=== PATIENT | female | born 1970 | race Caucasian/White ===

== ENCOUNTER 2024-12-29 12:40 | Emergency (ER) | payer BC, SELFPAY ==
[2024-12-29 12:41] VITALS: BMI 34.5
[2024-12-29 12:49] VITALS: BP 134/88; PULSE 65; RESP 18; TEMP 36.5; O2SAT 97
--- NOTE | 2024-12-29 12:59 | XR_ITS ---
Examination: CT abdomen and pelvis without contrast. Coronal 3-D reconstructions. Sagittal 2-D reconstructions. Date and time of exam:December 29, 2024 1311 hours INDICATIONS: Right-sided pelvic pain beginning 4 months ago CTDI: vol (mGy): 10.9 DLP: (mGycm): 618 Technique: Axial images of the abdomen have been obtained, 3 mm slice thickness Intravenous contrast material has not been administered. Low dose protocols were performed. One or more of the following dose reduction techniques were used; automated exposure control, adjustment of the mA and/or KV according to patient size, use of iterative reconstruction technique. Findings: No focal liver or splenic lesion Cholelithiasis No pancreatic mass No renal or ureteral calculi, no hydronephrosis Aorta normal size Normal appendix No bowel obstruction No diverticulitis Uterine calcifications, anteverted uterus atrophic uterus No bladder mass or bladder calculi Moderate osteopenia IMPRESSION: Lithiasis, negative for cholecystitis No renal or ureteral calculi, no hydronephrosis Normal appendix No bowel obstruction diverticulitis or free air
--- NOTE | 2024-12-29 12:59 | XR_ITS ---
Examination: Pelvic ultrasound, transabdominal, complete Technique: Transabdominal ultrasound of the pelvis performed using grayscale imaging Date and time of exam: December 29, 2024 1341 hours INDICATIONS: Intermittent pelvic pain beginning 3 days ago Lines: Uterus 6.8 cm endometrial stripe 0.2 cm No uterine mass Right ovary 2.3 cm arterial flow. Left ovary obscured by bowel gas IMPRESSION: No uterine or adnexal mass demonstrated
--- NOTE | 2024-12-29 13:00 | EDRME_ITS ---
Rapid Medical Screening Exam E Arrival date/time: 12/29/24 12:40 54-year-old female presents to the emergency department for complaints of right- sided abdominal pain ongoing for the last few months Chief Complaint: Abdominal Pain Vital signs: Vital Signs Temperature 97.7 F 12/29/24 12:49 Pulse Rate 65 12/29/24 12:49 Respiratory Rate 18 12/29/24 12:49 Blood Pressure 134/88 H 12/29/24 12:49 Pulse Oximetry (%) 97 12/29/24 12:49 Oxygen Delivery Method Room Air 12/29/24 12:49
[2024-12-29 13:37] LABS: Basophils # (Auto) 0.1 Thou/mm3 (0.0-0.2); Basophils % (Auto) 1 % (0-2.5); Eosinophils # (Auto) 0.6 Thou/mm3 (0.0-0.5); Eosinophils % (Auto) 5 % (0-10); Hematocrit 46.2 % (36.0-46.0); Hemoglobin 15.6 g/dL (12.0-16.0); Immature Granulocytes Auto 0.05 Thou/mm3 (0.00-0.00); Lymphocytes # (Auto) 3.7 Thou/mm3 (1.0-4.8); Lymphocytes % (Auto) 31 % (10-50); Mean Corpuscular HGB Conc 33.8 g/dl (31.0-37.0); Mean Corpuscular Hemoglobin 31.3 pg (25.0-35.0); Mean Corpuscular Volume 93 fL (80-100); Monocytes # (Auto) 1.0 Thou/mm3 (0.0-0.8); Monocytes % (Auto) 8 % (0-12); Neutrophils # (Auto) 6.7 Thou/mm3 (1.8-7.7); Neutrophils % (Auto) 56 % (37-80); Nucleated Red Blood Cell # 0.00 Thou/mm3 (0.00-0.00); Nucleated Red Blood Cell % 0 /100 WBC (0); Platelet Count 242 Thou/mm3 (140-440); RDW Standard Deviation 47.1 fL (36.4-46.3); Red Blood Count 4.99 Miln/mm3 (4.00-5.20); White Blood Count 12.1 Thou/mm3 (3.6-11.0)
[2024-12-29 13:56] LABS: Alanine Aminotransferase 24 U/L (10-49); Albumin, Serum 4.5 gm/dL (3.5-5.0); Albumin/Globulin Ratio 1.5 (1.2-2.2); Alkaline Phosphatase 123 U/L (46-116); Anion Gap 7 (7-16); Aspartate Amino Transferase 19 U/L (0-34); BUN/Creatinine Ratio 18 Ratio (12-20); Bilirubin,Total 0.2 mg/dL (0.3-1.2); Blood Urea Nitrogen 14 mg/dL (9-23); Calcium 9.8 mg/dL (8.3-10.6); Calcium (Corrected) 9.8 mg/dL (8.5-10.1); Carbon Dioxide 27.1 mMol/L (20.0-31.0); Chloride 108 mMol/L (98-107); Creatinine (Component) 0.8 mg/dL (0.6-1.3); Estimated Creatinine Clearance 93.3 mL/min (>60); Globulin 3.1 gm/dL (2.3-3.5); Glucose 93 mg/dL (74-106); Lipase 29 U/L (12-53); Osmolality,Calculated 283 (275-295); Potassium 4.2 mMol/L (3.4-5.1); Sodium 142 mMol/L (136-145); Total Protein 7.6 gm/dL (5.7-8.2); eGFR > 60 See Note
[2024-12-29 13:59] LABS: Collection Type, Urine Clean Catch
[2024-12-29 14:09] LABS: Bilirubin,Urine Negative (Negative); Blood,Urine 1+ (Negative); Clarity,Urine Clear (Clear/Hazy); Color,Urine Lt-Yellow (Lt Yel-Yel); Culture Indicated,Urine Not Indicated; Glucose, Urine Negative (Negative); Ketones,Urine Negative (Negative); Leukocyte Esterase,Urine Negative (Negative); Nitrite,Urine Negative (Negative); PH,Urine 7.0 (5.0-7.0); Protein,Urine Negative (Neg - Trace); RBC,Urine 3 /hpf (0-3); Specific Gravity,Urine 1.017 (1.001-1.035); Squamous Epithelial Cell,Urine 1 /hpf (0-5); Urobilinogen,Urine Negative mg/dL (0.0-1.0); WBC,Urine 1 /hpf (0-5)
--- NOTE | 2024-12-29 17:07 | PD.EDABDPN ---
ED Abdominal Pain RME/HPI General Chief Complaint: Abdominal Pain Stated complaint: R LOWER ABD PAIN X4 MONTHS RADIATING TO R LOW BACK Time seen by provider: 12/29/24 14:01 Arrival date/time: 12/29/24 12:40 RME / HPI RME / HPI narrative: 54-year-old female presents to the emergency department for complaints of right-sided abdominal pain ongoing for the last few months. Described as dull ache, severity moderate. Pain radiates to the right lower back. Denies any fever denies any dysuria denies any other complaints no medications taken prior to arrival. Related Data Previous Rx's ?Medication ?Instructions ?Recorded dicyclomine 20 mg tablet 20 mg PO QID PRN abdominal pain 12/29/24 #30 tabs ibuprofen 800 mg tablet 800 mg PO Q8H PRN pain #30 tabs 12/29/24 Allergies Allergy/AdvReac Type Severity Reaction Status Date / Time No Known Allergies Allergy Verified 12/29/24 12:45 Review of Systems Review of Systems Narrative Review of Systems: Review of system reviewed and within normal limits except mentioned in HPI ED Exam Narrative Physical exam: VITAL SIGNS: Reviewed. GENERAL APPEARANCE: Alert and interactive, follows commands, no acute distress, HEAD AND FACE: Non-traumatic. ENT: PERRL, pink conjunctivitis, eyelid no trauma, Mucous membrane moist. NECK: Supple, nontender, no nuchal rigidity. CHEST: No tenderness, no crepitus, no paradoxical movement, no retractions. LUNGS: Clear, well ventilated, symmetric, no rales, no wheezing, no ronchi, no stridor, good breath sounds bilaterally. HEART: Regular rate, regular rhythm, no murmur, no gallops. ABDOMEN: Soft, positive bowel sounds, nondistended, no guarding, right upper quadrant tenderness, no rebound, no masses, RECTAL: Deferred. GENITAL: Deferred. NEUROLOGICAL: Gross motor function intact sensory function intact, Appropriate for age. MUSCULOSKELETAL: low back nontender, full range of motion. EXTREMITIES: Nontender, full range of motion. SKIN: Color pink, dry, no rash, no lacerations, no abrasions, no contusions. LYMPHATICS: Deferred. Course Quality Measures none Orders Category Date Time Status CT abdomen pelvis wo con Stat Exams 12/29/24 12:59 Completed US pelvic complete Stat Exams 12/29/24 12:59 Completed CBC Stat Lab 12/29/24 13:24 Completed Comprehensive Metabolic Panel Stat Lab 12/29/24 13:24 Completed Lipase Stat Lab 12/29/24 13:24 Completed UA, C/S IF [Urinalysis, C/S if Indicated] Stat Lab 12/29/24 13:36 Completed Vital Signs Vital signs: Vital Signs Temperature 97.7 F 12/29/24 12:49 Pulse Rate 65 12/29/24 12:49 Respiratory Rate 18 12/29/24 12:49 Blood Pressure 134/88 H 12/29/24 12:49 Pulse Oximetry (%) 97 12/29/24 12:49 Oxygen Delivery Method Room Air 12/29/24 12:49 Abdominal Pain MDM MDM Narrative MDM Narrative:: 54-year-old female presents to the emergency department for complaints of right-sided abdominal pain ongoing for the last few months. Described as dull ache, severity moderate. Pain radiates to the right lower back. Denies any fever denies any dysuria denies any other complaints no medications taken prior to arrival. Patient's workup today is unremarkable. Except for slight leukocytosis of 12,000, LFTs are normal total bili is normal. Ultrasound of the pelvis came back unremarkable. CT scan of the abdomen pelvis showed cholelithiasis with no sign of acute cholecystitis. Clinically patient is not showing any sign of acute cholecystitis. Patient was advised to follow-up closely with PCP and for referral to general surgeon. Patient agrees with the plan Patient data External records reviewed:: None Clinical information provided by:: patient Social determinants that could affect healthcare access:: none Patient has the following chronic illnesses:: None How is presenting disease/condition affected by chronic disease/condition?: no chronic disease Evaluation data The following diagnostics were reviewed and interpreted by me:: lab results and radiology exam(s) Lab and/or radiology exams considered but not ordered:: None Interpretation Summary: See results MDM Medications / Prescriptions Medications or Prescriptions considered but not ordered:: None Medication administrations:: None Consultations Consultation(s) initiated? (list below): No Diagnosis Differential diagnosis abdominal pain: abdominal pain, gastroenteritis and pancreatitis Most likely diagnosis given after review of the tests above:: Cholelithiasis Admission Indicated Admission indicated?: not indicated Admission Request Was there a request for admission?: No Disposition Plan Disposition Plan: Discharge Discharge Attestation Discharge Attestation: The patient and all family members were given an opportunity to ask questions and understood the discharge instructions. Discharge instructions specifically effects, indications for sooner follow up or return to the emergency department, and the expected course of current diagnosis. Patient condition: Stable Discharge Plan Plan Patient Disposition: HOME (Self Care) Discharge Disposition comment: Stable Prescriptions/Referrals Prescriptions/Med Rec: New dicyclomine 20 mg tablet 20 mg PO QID PRN (Reason: abdominal pain) Qty: 30 0RF ibuprofen 800 mg tablet 800 mg PO Q8H PRN (Reason: pain) Qty: 30 0RF Referrals: Barbara Mckeon MD [Primary Care Provider] - In 1 week Problem List Clinical Impression: Abdominal pain, Gallstone Patient/Caregiver Discharge Instructions Discharge Activity: activity as tolerated Education Materials: Abdominal Pain, Treating Gallstones Additional Instructions: Thank you for the opportunity for serving you today. You are stable for discharged . You are advised to: Follow-up with your PCP in 1 to 2 days Return to ED for worsening of symptoms Increase oral fluids Take medication as prescribed Please avoid eating fatty, greasy, fried foods. Please avoid drinking milk, please avoid consuming dairy products As your PCP to refer you to general surgeon regarding your gallstone Print Language: Ethiopian Stand Alone Forms: Shelly Award Info., Patient Portal Info Letter PA/CASH APPLICATION REPRESENTATIVE Supervising Physician AZIZA/ELVIS Supervising Physician: MD Bret
== END 2024-12-29 18:11 | disposition home or self-care (01) ==
PROVIDERS: Nurse Practitioner Primary Care; Emergency Provider Family Medicine; PCP Family Medicine
DX: K80.20 Calculus of gallbladder without cholecystitis without obstruction (principal); R10.2 Pelvic and perineal pain
CPT/HCPCS: 36415; 74176; 76856; 80053; 81001; 83690; 85025; 99283

== ENCOUNTER 2025-01-05 11:26 | Day surgery (SDC) | payer BC, SELFPAY ==
[2025-01-05] VITALS (11 sets, daily range): BP systolic 130–176; BP diastolic 71–101; PULSE 53–70; RESP 12–20; TEMP 36.1–37.2; O2SAT 92–97; BMI 18.3
--- NOTE | 2025-01-05 11:54 | PD.EDRME ---
Rapid Medical Screening Exam RME Arrival date/time: 01/05/25 11:26 Chief Complaint: Abdominal Pain Time Seen by Provider: 01/05/25 11:56 Vital signs: Vital Signs Temperature 98.1 F 01/05/25 11:38 Pulse Rate 69 01/05/25 11:38 Respiratory Rate 16 01/05/25 11:38 Blood Pressure 130/88 H 01/05/25 11:38 Pulse Oximetry (%) 97 01/05/25 11:38 Oxygen Delivery Method Room Air 01/05/25 11:38 Pulse ox 97% on room air Vital signs reviewed by provider: Yes RME Narrative: 54-year-old female tells me that she has had right lower quadrant pain that radiates to the right flank that began July of this year. She was seen on December 25 and numerous tests were performed and were inconclusive. Patient is known to have gallbladder stones. She describes the pain to her right lower quadrant as like a ball and upon moving the ball feels tight.
--- NOTE | 2025-01-05 11:56 | EKG_ITS ---
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
--- NOTE | 2025-01-05 12:09 | PD.EDABDPN ---
ED Abdominal Pain RME/HPI General Chief Complaint: Abdominal Pain Stated complaint: Abdominal pain, sweating saw Bindu yesterday Time seen by provider: 01/05/25 11:56 Arrival date/time: 01/05/25 11:26 Limitations: no limitations RME / HPI RME / HPI narrative: 54-year-old female tells me that she has had right lower quadrant pain that radiates to the right flank that began July of this year. She was seen on December 25 and numerous tests were performed and were inconclusive. Patient is known to have gallbladder stones. She describes the pain to her right lower quadrant as like a ball and upon moving the ball feels tight. DR. AGUSTÍN LANDRUM ED EVALUATION: 54-year-old female with no significant past medical history presents to the Emergency Department with complaint of right flank pain radiating to the back and right upper quadrant, ongoing for 10 days. She describes nausea associated with the pain. Last oral intake was around 7 PM yesterday, consisting of watermelon and salad. She smokes and drinks socially (1?2 times per year) and denies any drug use. She was referred by Dr. Ruano for surgical evaluation. Related Data Previous Rx's ?Medication ?Instructions ?Recorded dicyclomine 20 mg tablet 20 mg PO QID PRN abdominal pain 12/29/24 #30 tabs ibuprofen 800 mg tablet 800 mg PO Q8H PRN pain #30 tabs 12/29/24 Allergies Allergy/AdvReac Type Severity Reaction Status Date / Time No Known Allergies Allergy Verified 01/05/25 11:30 Review of Systems Review of Systems Systems Reviewed: All systems reviewed, normal except as documented Past Medical History Past Medical History ENDOCRINE: Negative Diabetes Mellitus Type 2 Social History SMOKING STATUS: Current every day smoker ED Exam General Limitations: Present no limitations General appearance: Present alert and in no apparent distress Head Head exam: Present atraumatic, normocephalic and normal inspection Eye Eye exam: Present normal appearance, PERRL and EOMI ENT ENT exam: Present normal exam, normal oropharynx and mucous membranes moist Neck Neck exam: Present normal inspection, full ROM and trachea midline Chest Chest inspection: Present normal inspection and symmetric chest wall rise Respiratory Respiratory exam: Present normal lung sounds bilaterally Cardiovascular Cardiovascular exam: Present regular rate, normal rhythm and normal heart sounds Abdominal Exam Abdominal exam: Present soft and normal bowel sounds Extremities Exam Extremities exam: Present normal inspection and full ROM Back Exam Back exam: Present normal inspection and full ROM Neurological Exam Neurological exam: Present alert, oriented X3 and CN II-XII intact Psychiatric Psychiatric exam: Present normal affect and normal mood Skin Skin exam: Present warm, dry, intact and normal color Course Quality Measures none Orders Category Date Time Status Patient Condition Routine Admission 01/05/25 12:[address] in Surgical Day Care Routine Admission 01/05/25 12:38 Active Consent [Obtain Written Consent For:] .NOW Care 01/05/25 12:38 Active EKG (ED ONLY) *Do not use* NOW Care 01/05/25 11:57 Completed Intake and Output QSHIFT Care 01/05/25 12:45 Ordered NPO NOW Care 01/05/25 12:39 Active Notify provider NEEDED Care 01/05/25 12:38 Active Diet NPO (NOW) Diet 01/05/25 12:39 Active EKG (ED Only) Stat Exams 01/05/25 11:56 Draft CBC Stat Lab 01/05/25 12:00 Completed CMP [Comprehensive Metabolic Panel] Stat Lab 01/05/25 12:00 Completed PT [Prothrombin Time with INR] Stat Lab 01/05/25 12:00 Completed Acetaminophen Tab [Tylenol Tab] Med 01/05/25 12:38 Active 650 mg PO Q6H PRN KCL 20 mEq/L in D5-1/2NS Med 01/05/25 12:45 Active 20 meq in 1,000 ml IV 100 mls/hr Morphine Inj Med 01/05/25 12:11 Discontinued 4 mg IM X1 ONE Ondansetron Inj [Zofran Inj] Med 01/05/25 12:38 Active 4 mg IVP Q6H PRN Ondansetron Odt [Zofran Odt] Med 01/05/25 12:11 Discontinued 4 mg PO X1 ONE Code Status Routine Oth 01/05/25 12:38 Ordered Vital Signs Vital signs: Vital Signs Temperature 98.1 F 01/05/25 11:38 Pulse Rate 69 01/05/25 11:38 Respiratory Rate 16 01/05/25 11:38 Blood Pressure 130/88 H 01/05/25 11:38 Pulse Oximetry (%) 97 01/05/25 11:38 Oxygen Delivery Method Room Air 01/05/25 11:38 Abdominal Pain MDM MDM Narrative MDM Narrative:: I, Claire Draper, am scribing for and in the presence of Dr. Borges. Patient is a 54-year-old female that to the emergency room with concerns for epigastric pain. Patient was sent over by her surgeon to get preop labs and EKG before surgery. I spoke with patient surgeon Dr. Ruano, he requested CBC CMP coags EKG and will take her in for surgery and then discharge her. On my assessment patient abdomen soft nondistended, no rebound or guarding. Patient is nonseptic nontoxic. Labs without any acute hematologic or significant metabolic abnormalities. EKG without evidence of acute ischemia arrhythmia. Patient taken to surgery hemodynamically stable not in distress. Patient data External records reviewed:: [facility] previous records Clinical information provided by:: patient Social determinants that could affect healthcare access:: other (specify) (She smokes and drinks socially (1-2 times per year) and denies any drug use.) Patient has the following chronic illnesses:: Denies any PMHx, surgeries, daily medications, or known allergies. How is presenting disease/condition affected by chronic disease/condition?: no chronic disease Evaluation data The following diagnostics were reviewed and interpreted by me:: lab results and EKG tracing(s) Lab and/or radiology exams considered but not ordered:: none Interpretation Summary: Labs without acute hematologic or significant metabolic abnormalities EKG without evidence of ischemia or arrhythmia. Medications / Prescriptions Medications or Prescriptions considered but not ordered:: none Medication administrations:: Medication Administration History Acetaminophen (Acetaminophen 325 Mg Tablet) 650 mg PO Q6H PRN PRN Reason: Fever >101.5 Stop: 02/04/25 12:37 Potassium Chloride/Dextrose/Sod Cl (Kcl 20 Meq/L In D5-1/2ns) 20 meq in 1,000 mls @ 100 mls/hr IV .Q10H SOUMYA Stop: 02/04/25 12:44 Ondansetron HCl (Ondansetron Inj 2 Mg/Ml Inj 2 Ml) 4 mg IVP Q6H PRN PRN Reason: NAUSEA OR VOMITING Stop: 02/04/25 12:37 Discontinued Medications Morphine Sulfate (Morphine Sulf Inj 10 Mg/Ml Vial) 4 mg IM X1 ONE Stop: 01/05/25 12:12 Ondansetron HCl (Ondansetron Odt 4 Mg Tabrap) 4 mg PO X1 ONE; Protocol Stop: 01/05/25 12:12 see above Consultations Consultation(s) initiated? (list below): Yes Consultation #1 (Physician, Specialty, Details): Discussed test HPI, PMHx, lab, radiology results and/or management with Dr. Torres. Will do surgery, just wants labs and EKG done, does not want US or CT. Time: 12:10 Diagnosis Differential diagnosis abdominal pain: other (nephrolithiasis, cholecystitis, and pyelonephritis) Most likely diagnosis given after review of the tests above:: epigastric pain Admission Indicated Admission indicated?: not indicated (Patient will be taken to surgery and then discharged by the surgeon.) Admission Request Was there a request for admission?: No Disposition Plan Disposition Plan: other (specify) (Patient will be discharged by her surgeon Dr. Ruano after surgery) Discharge Plan Plan Patient Disposition: HOME (Self Care) Problem List Clinical Impression: Acute epigastric pain Impression comment: Please follow-up with your primary care doctor as well as your surgeon as an outpatient.
[2025-01-05 12:21] LABS: Basophils # (Auto) 0.1 Thou/mm3 (0.0-0.2); Basophils % (Auto) 1 % (0-2.5); Eosinophils # (Auto) 0.3 Thou/mm3 (0.0-0.5); Eosinophils % (Auto) 2 % (0-10); Hematocrit 46.7 % (36.0-46.0); Hemoglobin 15.6 g/dL (12.0-16.0); Immature Granulocytes Auto 0.04 Thou/mm3 (0.00-0.00); Lymphocytes # (Auto) 3.1 Thou/mm3 (1.0-4.8); Lymphocytes % (Auto) 24 % (10-50); Mean Corpuscular HGB Conc 33.4 g/dl (31.0-37.0); Mean Corpuscular Hemoglobin 31.5 pg (25.0-35.0); Mean Corpuscular Volume 94 fL (80-100); Monocytes # (Auto) 0.9 Thou/mm3 (0.0-0.8); Monocytes % (Auto) 7 % (0-12); Neutrophils # (Auto) 8.3 Thou/mm3 (1.8-7.7); Neutrophils % (Auto) 65 % (37-80); Nucleated Red Blood Cell # 0.00 Thou/mm3 (0.00-0.00); Nucleated Red Blood Cell % 0 /100 WBC (0); Platelet Count 238 Thou/mm3 (140-440); RDW Standard Deviation 46.6 fL (36.4-46.3); Red Blood Count 4.96 Miln/mm3 (4.00-5.20); White Blood Count 12.8 Thou/mm3 (3.6-11.0)
[2025-01-05 12:37] LABS: Alanine Aminotransferase 12 U/L (10-49); Albumin, Serum 4.5 gm/dL (3.5-5.0); Albumin/Globulin Ratio 1.5 (1.2-2.2); Alkaline Phosphatase 119 U/L (46-116); Anion Gap 8 (7-16); Aspartate Amino Transferase 15 U/L (0-34); BUN/Creatinine Ratio 13 Ratio (12-20); Bilirubin,Total 0.4 mg/dL (0.3-1.2); Blood Urea Nitrogen 10 mg/dL (9-23); Calcium 9.4 mg/dL (8.3-10.6); Calcium (Corrected) 9.4 mg/dL (8.5-10.1); Carbon Dioxide 23.9 mMol/L (20.0-31.0); Chloride 109 mMol/L (98-107); Creatinine (Component) 0.8 mg/dL (0.6-1.3); Estimated Creatinine Clearance 64.9 mL/min (>60); Globulin 3.1 gm/dL (2.3-3.5); Glucose 95 mg/dL (74-106); Osmolality,Calculated 280 (275-295); Potassium 4.0 mMol/L (3.4-5.1); Sodium 141 mMol/L (136-145); Total Protein 7.6 gm/dL (5.7-8.2); eGFR > 60 See Note
[2025-01-05 12:39] LABS: INR 1.0 (0.9-1.3); Prothrombin Time 10.8 Seconds (9.0-12.2)
--- NOTE | 2025-01-05 12:46 | PD.SURHP ---
HPI Date of Admission 01/05/2025 Chief Complaint Chief Complaint: Right upper quadrant abdominal pain with nausea and vomiting HPI 54-year-old female presented to the emergency department with worsening abdominal pain. She was seen in the emergency department last week with similar symptoms, CT scan revealed gallstones and mildly elevated WBC. She has been having persistent pain. She has not been able to eat or tolerate any food. Her pain is in epigastric and right upper quadrant rating to her back and she has had multiple episodes of nausea and vomiting. She denies jaundice, fever, chills or discoloration of urine or stool. She denies having similar symptoms in the past. Review of Systems Constitutional Constitutional: Denies chills and Denies fever(s) Cardiovascular Cardiovascular: Denies chest pain Respiratory Respiratory: Denies cough Gastrointestinal Gastrointestinal: Reports abdominal pain, Reports nausea and Reports vomiting Hematologic/Lymphatic Hematologic/Lymphatic: Denies easy bleeding and Denies easy bruising Past Medical History Surgical History OTHER SURGICAL HX: , ovarian cystectomy Social History SMOKING STATUS: Current every day smoker SUBSTANCE USE: does not use ALCOHOL: Current Meds Home Medications and Allergies Allergies Allergy/AdvReac Type Severity Reaction Status Date / Time No Known Allergies Allergy Verified 01/05/25 11:30 Exam Vital Signs Temp Pulse Resp BP Pulse Ox O2 Del Method 98.1 F 69 16 130/88 H 97 Room Air 01/05/25 11:38 01/05/25 11:38 01/05/25 11:38 01/05/25 11:38 01/05/25 11:38 01/05/25 11:38 Constitutional Constitutional: no acute distress Routine HEENT Exam Eye: Present PERRL (Anicteric sclera) Routine Respiratory Exam Respiratory: Present CTA bilaterally Routine Cardiovascular Exam Cardiovascular: Present RRR Routine Abdominal Exam Abdominal: Present soft, normoactive bowel sounds and tenderness (Right upper quadrant tenderness to palpation with guarding, positive Costello sign); Absent distended Results Results: Laboratory Laboratory results: results reviewed Results: Imaging Imaging narrative: CT scan of abdomen and pelvis images from few days ago reviewed, radiologist interpretation noted Assessment & Plan Problem List (1) Calculus of gallbladder with acute cholecystitis without obstruction: Status: Acute Plan Will take patient to the operating room for laparoscopic possible open cholecystectomy. Risks include but not limited to infection, bleeding, injury to bowel, liver, stomach, bile duct, retained stone, bile leak, abdominal sepsis and or abdominal abscess, need for further procedure and or operation discussed with the patient. Benefits and alternatives explained to her, all her questions answered, she agreed and consented to proceed with the operation. Quality Measures Quality Measures none
[2025-01-05] MEDS: ONDANSETRON INJ 2 MG/ML INJ 2 ML 4 MG IVP (13:20)
[2025-01-05] MEDS: MORPHINE SULF INJ 10 MG/ML VIAL 4 MG IVP (13:24)
[2025-01-05] MEDS: KCL 20 mEq/L in D5-1/2NS 20 MEQ/1,000 ML BAG 100 MEQ IV (13:25)
--- NOTE | 2025-01-05 15:38 | ESOP_ITS ---
Date of Procedure 01/05/25 Pre Op Diagnosis Cholelithiasis with acute cholecystitis Post Op Diagnosis Cholelithiasis with cholecystitis Procedure Laparoscopic cholecystectomy Findings Moderately distended gallbladder with gallstones and chronic cholecystitis Procedure Description Patient was brought into the operating room in supine position. After administration of general endotracheal anesthesia abdomen was prepped and draped in standard surgical manner. A Veress needle was inserted through the umbilicus and pneumoperitoneum was obtained up to 15 mmHg. The Veress needle was then removed, a 5 mm infraumbilical incision was made and the 5mm trocar was inserted. Laparoscopic camera was placed. Under direct visualization a lapar oscopic camera a 10 mm trocar was placed in subxiphoid and two 5 mm trocars placed in right upper quadrant. The gallbladder was identified and was noted to be moderately distended with multiple gallstones and chronic cholecystitis. It was retracted cephalad and laterally. Dissection started near the infundibulum of gallbladder where cystic duct and gallbladder junction clearly identified. The cystic duct was circumferentially dissected off the peritoneum and surrounding inflammatory tissue. The critical view of safety was clearly demonstrated. Cystic duct was then divided between 2 endoclips proximally and one distally. The cystic artery was similarly dissected and divided. The gallbladder was then from the liver bed using electrocautery. The gallbladder was then placed inside an Endo Catch and removed from the abdomen utilizing subxiphoid trocar site. The area was copiously and thoroughly washed and irrigated, all the fluid was suctioned and the suction fluid returned clear. Hemostasis achieved using electrocautery. Endoclips noted be in place and intact without any bleeding or any leakage. Hemostasis was adequate and satisfactory. The subxiphoid trocar sites fascial defect was closed with 0 Vicryl using Endo Closure device. Instruments and trocars removed, pneumoperitoneum was evacuated and the incisions closed with 4-0 Monocryl in subcuticular fashion. Instrument needle and sponge counts were all reported to be correct X2. Patient tolerated the procedure well, was extubated, breathing spontaneously and without difficulty and was transferred to postanesthesia care in stable condition. Anesthesia GETA and local Pathology / specimen Other (Gallbladder and contents) Estimated Blood Loss 10 Condition Stable Disposition PACU Surgeon Herman Ruano MD Surgical Staff Operation Date: 01/05/25 16:30 Case Staff Anesthesiologist: Hank Oviedo RNcopper flotation operator: Saravanan Sorensen
--- NOTE | 2025-01-05 15:45 | SUR.PHASEI ---
1545: Pt. came out squirming in bed, first BP high due to her moving around, remaining vitals stable, breathing unlabored, complaint of pain, pain med given by MD Oviedo, no complaint of nausea, x4 dermabond sites to ABD CDI, no active bleed noted, report recieved from MD Oviedo and Ronald COLLINS.
[2025-01-05] MEDS: fentaNYL CIT INJ 50 mCg/ML AMP 2ML IVP ×2 (16:00→16:06)
[2025-01-05] MEDS: KETOROLAC INJ 30 MG/ML VIAL IVP (16:15)
[2025-01-05] MEDS: PROMETHAZINE INJ 12.5 MG in SODIUM CHLORIDE 0.9% 50 ML 2.5 MG IV (16:37)
--- NOTE | 2025-01-05 17:10 | SUR.PHASEII ---
1710: Pt. AAOx4, vitals stable, breathing unlabored, no complaint of pain or nausea, x4 dermabond sites to ABD CDI, no active bleed noted, pt. tolerated sips of soda well, pt. ambulated to wheelchair with steady gait and no assist, no complications. Gave discharge instructions to the pt. and her ride, both verbalzied understanding and had no further questions. Pt. family held on to belongings, belongings paper was not filled out in ER. Pt. and her verbalized they left with all personal belongings.
== END 2025-01-05 17:10 | disposition home or self-care (01) ==
LOC: SERX 12:45 → S2EX 13:07
PROVIDERS: Emergency Provider Emergency Medicine; PCP Family Medicine; Referring Provider Surgery; Visit Provider Surgery
PROC: 0FT44ZZ Resection of Gallbladder, Percutaneous Endoscopic Approach (ICD-10-PCS; CPT 47562; principal; 2025-01-05 16:15)
DX: K80.10 Calculus of gallbladder with chronic cholecystitis without obstruction (principal); F17.200 Nicotine dependence, unspecified, uncomplicated
CPT/HCPCS: 47562; 36415; 80053; 85025; 85610; 93005; 96374; 96375; 99283; A4217; A4649; J0131; J0694; J1100; J1885; J2270; J2405; J2550; J2704; J2710; J3010; J3480; J3490; J1596